=== PATIENT | male | born 1945 | race Caucasian/White ===

== ENCOUNTER 2016-11-01 17:05 | Inpatient (IN) | payer MEDICARE, OTHER ==
--- NOTE | ~2016-11-01 | CR63 ---
[facility] A Service of [facility] RADIOLOGY TEXT RESULTS PATIENT: WON SHAH LOCATION: A 240-01 : 43 UNIT #: [id number] AGE: [address]: Dwight Rhodes III, MD SEX: M ORDER DR: [id number] [place] [id number] [facility]. [place], [place] [address] [id number] I MR#: [id number] Acc #: [id number] NAME: WON SHAH. : 1945 SEX: M STUDY DATE/TIME: 11/02/2016 12:44 UNIT: [facility] ROOM: 240 STUDY DESCRIPTION: CR Chest 2 View Attending Physician: Dwight Rhodes III, M.D. Ordering Physician: David Stahl M.D. Primary Care Physician: Yanira Plata M.D. MEDICAL IMAGING REPORT This report is preliminary unless electronic signature is present EXAM Chest 2 views 11/02/2016 INDICATIONS 70-year-old male presenting with shortness of air that began today. History of bypass surgery and coronary artery disease. TECHNIQUE Frontal chest COMPARISON 01/22/2016 FINDINGS Postop changes of median sternotomy and bypass surgery are present. There is enteric tube present and the tip is at the level of the proximal body stomach. Probable external superimposition of the enteric tube external to the patient over the chest and upper abdomen. Correlate with physical exam. Cardiac silhouette within normal limits for technique. Lung volumes are low. There is bronchovascular crowding. Right lung is clear. There is some atelectasis or scarring in the left lung base. No pneumothorax. IMPRESSION 1. There is some atelectasis or scarring in the left lung base with postop changes in the left hilum and left lung base. 2. Enteric tube tip appears to be at the level the proximal body of the stomach. Probable superimposition of external tubing projecting over the chest upper abdomen as described above. Dictated by... Terry Del Cid M.D. [facility] A Service of [facility] RADIOLOGY TEXT RESULTS PATIENT: WON SHAH LOCATION: [place] [address] : 43 UNIT #: [id number] AGE: [address]: Dwight Rhodes III, MD SEX: M ORDER DR: THIS IS AN ELECTRONICALLY VERIFIED REPORT Terry Del Cid M.D. at 11/03/2016 8:11 AM JOSE/pascual TD: 11/02/2016 17:40 JOB #: [id number] MEDICAL IMAGING REPORT COPY
--- NOTE | ~2016-11-01 | EKG ---
PATIENT: WON SHAH UNIT #: [id number] Ventricular Rate: 63 BPM Atrial Rate: 63 BPM P-R Interval: 216 ms QRS Duration: 98 ms Q-T Interval: 468 ms QTC Calculation(Bezet): 478 ms P Moira: 35 degrees Calculated R Moira: -51 degrees Calculated T Moira: -179 degrees Diagnosis Line: Sinus rhythm with 1st degree A-V block Diagnosis Line: Left axis deviation Diagnosis Line: Left ventricular hypertrophy with repolarization Diagnosis Line: abnormality Diagnosis Line: Abnormal ECG Diagnosis Line: No previous ECGs available Diagnosis Line: Confirmed by MIKY RODAS MD ([id number]) on 11/02/2016 Diagnosis Line: 5:41:54 PM INTERPRETING MD: CLARK INGRAM
--- NOTE | ~2016-11-01 | DS ---
Unit #: [id number] #: [id number] Patient: WON SHAH [id number] [address] [id number] I MR#: [id number] NAME: WON SHAH. ROOM: 465 Age: 70 Sex: M Admission Date: 11/02/2016 : 1945 Discharge Date: 11/06/2016 Attending Physician: Dwight Rhodes III, M.D. Primary Care Physician: Yanira Plata M.D. DISCHARGE SUMMARY ADMITTING DIAGNOSIS Incarcerated parastomal hernia. DISCHARGE DIAGNOSIS Incarcerated parastomal hernia. SECONDARY DIAGNOSIS Coronary artery disease. ADMITTING PHYSICIAN Dr. Dwight Rhodes. CONSULTATIONS 1. Dr. Julien. 2. HIPS. 3. Dr. Viera. PROCEDURE PERFORMED On November 03, 2016, he underwent laparoscopic-assisted open reduction and repair of parastomal hernia. BRIEF HOSPITAL COURSE This is a 70-year-old gentleman who was admitted with incarcerated parastomal hernia. He was hydrated and evaluated by hospitalist and cardiology and cleared for surgery. He underwent laparoscopic-assisted open reduction and resection of parastomal hernia. He tolerated that procedure very well. He was advanced to solid food and by postoperative day #3 was tolerating that without any difficulty. His TESSA drain was removed prior to discharge. DISPOSITION Discharge home. DISCHARGE INSTRUCTIONS 1. He is to follow up with Dr. Jorge next week in the office to have his valorie removed. 2. He was given a prescription for [place] and told to resume his home medications. 3. He has been instructed it is okay to shower. 4. No driving until he is off pain pills for at least 48 hours. Unit #: [id number] #: [id number] Patient: WON SHAH Dictated by... Dwight Rhodes III, M.D. VCL/logan TD: 11/06/2016 10:39 JOB #: [id number] DISCHARGE SUMMARY X Dwight Rhodes III, MD X DISCHARGE SUMMARY
--- NOTE | ~2016-11-01 | OR ---
Unit #: [id number] #: [id number] Patient: WON SHAH [id number] [address] [address] [id number] I MR#: [id number] NAME: WON SHAH. ROOM: [facility] Date of Procedure: 11/03/2016 Admission Date: 11/02/2016 Surgeon: Kasi Jorge M.D. : 1945 Attending Physician: Dwight Rhodes III, M.D. Primary Care Physician: Yanira Plata M.D. OPERATIVE REPORT PREOPERATIVE DIAGNOSIS Incarcerated parastomal hernia with obstruction. POSTOPERATIVE DIAGNOSIS Strangulated parastomal hernia with obstruction. PROCEDURES PERFORMED 1. Diagnostic laparoscopy. 2. Laparoscopic reduction of parastomal hernia. 3. Partial colectomy excising 15 cm of colon. 4. Open repair of parastomal hernia. 5. Creation of left lower quadrant colostomy. MOLDING PROCESS TECHNICIAN Dwight Rhodes M.D. ANESTHESIA General endotracheal anesthesia. ESTIMATED BLOOD LOSS 100 mL. IV FLUIDS 1.5 L crystalloid. COMPLICATIONS None. INDICATIONS FOR PROCEDURE The patient is a 70-year-old gentleman, who presents with the aforementioned diagnosis. He presents for operative management. DESCRIPTION OF PROCEDURE The patient was taken to the operating theater and placed in the supine position. General anesthesia was induced. The abdomen was prepped and draped. A 5-mm Optiview trocar was placed in left upper quadrant without difficulty. The abdomen was insufflated to 15 mmHg with CO2. Under direct vision, I placed a second 5-mm port. General inspection of the abdomen revealed incarcerated hernia all above intraabdominal was viable. I attempted to reduce this laparoscopic to no avail. Leaving the abdomen insufflated, I then cut down on the hernia. Creating an elliptical incision inclusive of the previous ostomy. I was able to get into the Unit #: [id number] #: [id number] Patient: WON SHAH hernia sac and then bluntly free up the hernia sac down to the fascia. I enlarged the fascial opening to allow to mobilize the incarcerated colon. After taking down the sac, identified segments of the distal colon, which were ischemic and pending perforation. Also, identified ischemic omentum associated with this. This was thus excised excising approximately 15 cm of colon. I was able to mobilize the remaining colon with plenty of length in the left lower quadrant. Thus, I then created the left lower quadrant colostomy using a muscle-splitting technique in the left lower quadrant bringing out the colon through this colostomy site. We then secured the colon with 3-0 Vicryl to the anterior fascia. I then was checked on hemostasis and repaired the hernia with interrupted #1 Vicryl. 3-0 Vicryl was then used after placing a Tobin-Levine drain into the depth space created by this hernia. I then closed with valorie. I then matured the ostomy in the left lower quadrant with 3-0 Vicryl. The patient tolerated the procedure well and sent to the recovery room in good condition. Dictated by... Tonya Jacques/kimberly TD: 11/03/2016 16:17 JOB #: [id number] OPERATIVE REPORT X Kasi Jorge MD X PROCEDURE OPERATIVE NOTE
--- NOTE | ~2016-11-01 | CR42 ---
[facility] A Service of [facility] RADIOLOGY TEXT RESULTS PATIENT: WON LANDA LOCATION: C2A 240- : 43 UNIT #: [id number] AGE: [address]: Dwight Rhodes III, MD SEX: M ORDER DR: [id number] [place] [id number] [facility]. [place], [place] [address] [id number] I MR#: [id number] Acc #: [id number] NAME: WON LANDA. : 1945 SEX: M STUDY DATE/TIME: 11/02/2016 12:50 UNIT: [facility] ROOM: 240 STUDY DESCRIPTION: CR Barium Enema Attending Physician: Dwight Rhodes III, M.D. Ordering Physician: David Stahl M.D. Primary Care Physician: Yanira Plata M.D. MEDICAL IMAGING REPORT This report is preliminary unless electronic signature is present EXAM Gastrografin enema INDICATIONS Mr. Landa is a 70-year-old gentleman with a history of left hemicolectomy. He has a right lower quadrant colostomy. He presented with complaints of a mass around the colostomy site, which actually appears to be a parastomal hernia containing additional loops of colon. Extensive fecal burden was identified within the remaining colon and this was felt to be concerning for possible stricture involving the ostomy. TECHNIQUE The patient was placed supine on the fluoroscopy table and initial asbestos hazard abatement worker image was obtained which showed excreted oral contrast material within the patient's bladder. Patient is noted to have gaseous distension of colon within the right lower quadrant, with no other frankly dilated loops of bowel. The patient's colostomy was intubated using a red rubber catheter and contrast was injected. Despite multiple efforts, I was only able to opacify the most-superficial aspect of the stoma. Potentially, there is some narrowing which is precluding opacification of the more-proximal/deeper aspects of the ostomy. Patient tolerated the procedure well. There were no immediate complications. A total of 9 fluoroscopic images were obtained. Total fluoroscopy time was 2.2 minutes. IMPRESSION Despite multiple efforts, I was unable to opacify the deeper/more proximal loops of the ostomy. This is certainly suggestive of a stricture involving the ostomy, as was discussed on prior study from November 01, 2016. Certainly, extensive residual fecal material is seen within the patient's right colon. Dictated by... [facility] A Service of [facility] RADIOLOGY TEXT RESULTS PATIENT: WON LANDA LOCATION: [place] [address] : 43 UNIT #: [id number] AGE: [address]: Dwight Rhodes III, MD SEX: M ORDER DR: Nickie Stover M.D. THIS IS AN ELECTRONICALLY VERIFIED REPORT Nickie Stover M.D. at 11/03/2016 8:43 AM AFF/psc TD: 11/02/2016 23:28 JOB #: [id number] MEDICAL IMAGING REPORT COPY
--- NOTE | ~2016-11-01 | CO ---
Unit #: [id number] #: [id number] Patient: WON SHAH [id number] [facility]. [place], [place] [address] [id number] I MR#: [id number] NAME: WON SHAH ROOM: 240 Age: 70 Sex: M Admission Date: 11/02/2016 : 1945 Attending Physician: Dwight Rhodes III, M.D. Primary Care Physician: Yanira Plata M.D. CONSULTATION REPORT REASON FOR CONSULTATION Preoperative evaluation. HISTORY OF PRESENT ILLNESS This is a 70-year-old white male who is known to Dr. Carreon and has a history of myocardial infarction in the past. He had a coronary artery bypass graft x5 in May 2005. At some point he had a stent placed to the saphenous vein graft to the right coronary artery. His last cardiac catheterization was in 2010, and his grafts were patent. He is known to have ischemic colitis and underwent partial colectomy with colostomy. He is known to have peristoma hernia. He came to the emergency room because of abdominal pain. He was found to have an acutely incarcerated colostomy site that needs surgical revision. From a cardiac standpoint the patient says he has no symptoms of angina. He denies dizziness, palpitations, paroxysmal nocturnal dyspnea or orthopnea. He has no leg edema. No symptoms with his activities. He has had no cardiac procedures, except echocardiogram, since his last cardiac catheterization in 2010. He follows up with Dr. Carreon on a regular basis. His electrocardiogram shows deep T wave inversions in the anterolateral leads that have been sighted on previous electrocardiograms. Troponin on admission was negative. PAST MEDICAL HISTORY 1. Myocardial infarction, details unknown. 2. Coronary artery bypass graft x5 in 05/2005. 3. PCI with stent placement to the saphenous vein graft to the PDA of the right coronary artery in 2007. 4. Cardiac catheterization, 03/13/2011, per Dr. Garrison at [facility] that revealed left main small but normal; LAD mid vessel subtotal, proximal stenosis of 70% to 80%; left circumflex artery 100% proximal; right coronary artery dominant vessel with severe diffuse disease with stenosis up to 90% to 95%; VELAZCO to LAD patent; sequential saphenous vein grafts to the first and diagonal branch patent; saphenous vein graft to the obtuse marginal branch patent; saphenous vein graft to the PDA of the right coronary artery patent with stent widely patent. 5. Hypertension. 6. Hyperlipidemia. 7. Diabetes mellitus type 2. 8. Peripheral neuropathy. 9. GERD. Unit #: [id number] #: [id number] Patient: WON SHAH 10. Chronic kidney disease. 11. Polio as a child. 12. Ischemic colitis status post partial colectomy with colostomy. 13. Poor baseline exercise tolerance. 14. Former smoker. PAST SURGICAL HISTORY 1. Anal suture repair. 2. Cholecystectomy. 3. Partial colectomy with colostomy. 4. Left femoral neck open reduction and internal fixation. SOCIAL HISTORY The patient is . He quit smoking in 2004. Ambulates using a walker and cane. He has poor baseline exercise tolerance. Denies illicit drug and alcohol use. FAMILY HISTORY Noncontributory. ALLERGIES Compazine. HOME MEDICATIONS 1. Pravastatin 40 mg daily. 2. Ranexa 500 mg b.i.d. 3. Amaryl 1 mg daily. 4. Protonix 40 mg daily. 5. Aspirin 81 mg daily. 6. Furosemide 40 mg daily. 7. Potassium chloride 20 mEq daily. 8. Nitroglycerin 0.4 mg sublingual p.r.n. 9. Imdur 90 mg daily. REVIEW OF SYSTEMS CONSTITUTIONAL: Negative for fever or chills. No weakness or fatigue. HEENT: No headache, hearing or visual changes or difficulty with swallowing. Negative for dizziness. CARDIOVASCULAR: Has no symptoms of angina. Denies palpitations. No paroxysmal nocturnal dyspnea or orthopnea. No syncope or near syncope. RESPIRATORY: Negative for dyspnea, cough or hemoptysis. GASTROINTESTINAL: Positive for abdominal pain. No hematochezia, hematemesis or melena. EXTREMITIES: Negative for lower extremity edema. PHYSICAL EXAMINATION VITAL SIGNS: Blood pressure 92/43, heart rate 83, temperature 97.7, BMI 24. GENERAL: This is a 70-year-old elderly white male who is in no acute distress. NEUROLOGIC: He is awake, alert and oriented without focal weaknesses. NECK: Trachea is midline. No thyromegaly or lymphadenopathy. No jugular venous distention. CARDIOVASCULAR: S1, S2. No S3 or S4. A grade 2/6 systolic murmur noted. No rubs, no clicks. Regular rate and rhythm. LUNGS: Clear to auscultation without rales, rhonchi or wheezing. ABDOMEN: Soft, nontender with bowel sounds present. Noted for colostomy. EXTREMITIES: Without leg edema. Unit #: [id number] #: [id number] Patient: WON SHAH DIAGNOSTIC STUDIES LABORATORY STUDIES: Glucose 145, BUN 16, creatinine 1.9, sodium 135, potassium 4.8. CK-MB 5.8, troponin less than 0.05. White count 35.5, hemoglobin 13.3, hematocrit 39.1, platelet count 138. IMAGING: CT of the abdomen and pelvis reveals post hemicolectomy with right abdominal colostomy. There is herniation of some of the colon into the colostomy site. CARDIOVASCULAR STUDIES: Electrocardiogram - Normal sinus rhythm with first-degree AV block with left axis deviation, poor R wave progression and deep T wave inversion V2-V6, I and AVL. IMPRESSION 1. Abdominal pain. 2. Acute on chronic incarcerated colostomy site. 3. History of ischemic colitis status post partial colectomy with colostomy. 4. Coronary artery disease with history of myocardial infarction and coronary artery bypass graft x5 in 2004 with all grafts patent per cardiac catheterization in 2010. 5. Hypertension. 6. Hyperlipidemia. 7. Diabetes mellitus type 2. 8. Chronic kidney disease. PLAN 1. Cardiology was consulted for preoperative evaluation. The patient may need colostomy revision. He has no symptoms of angina. No heart failure on examination. 2. Blood pressure is low-normal but on no antihypertensive medications. 3. Will obtain two-D echocardiogram to evaluate left ventricular systolic function. If no acute findings, the patient is okay to undergo surgery at moderate, but acceptable, risk. 4. Will need cardiac telemetry monitoring postoperatively. Will follow the patient with you. 5. Follow up with Dr. Carreon at discharge. Thank you for allowing us to assist with this patient's care. Dictated by... Red Hayes M.D. AEP/neo TD: 11/02/2016 14:17 JOB #: [id number] CC: Kasi Carreon M.D. Unit #: [id number] #: [id number] Patient: WON SHAH CONSULTATION REPORT X Elmer Duval APRN CONSULTATION REPORT
--- NOTE | ~2016-11-01 | HP ---
Unit #: [id number] #: [id number] Patient: WON LANDA [id number] [address] [place], [place] [address] [id number] I MR#: [id number] NAME: WON LANDA. ROOM: 240 Age: 70 Sex: M Admission Date: 11/01/2016 : 1945 Attending Physician: Dwight Rhodes III, M.D. Primary Care Physician: Yanira Plata M.D. HISTORY AND PHYSICAL Mr. Landa is a 70-year-old white male who 12 years ago had a colostomy formation for ischemic colitis, status post coronary artery bypass surgery. How much colon is left in his abdomen is difficult to say. He has had a parastomal hernia for quite some time, as a matter of fact it has been evaluated by his GI doctors in the past and they declined to repair this and/or do a colostomy revision. He presented with acute abdominal pain and inspissated stool at the colostomy site. ALLERGIES None except for Compazine. HOME MEDICATIONS Pravastatin, Ranexa, Amaryl, Protonix, Lasix, nitroglycerin, and Imdur. He is also on isosorbide. PAST MEDICAL HISTORY He has had a history of coronary artery disease, hypertension, diabetes. He has had stents place, cholecystectomy, and his colostomy as noted. He is a nonsmoker and nondrinker. No illicit drug use. Retired and disabled. REVIEW OF SYSTEMS Otherwise is noncontributory. PHYSICAL EXAMINATION GENERAL: Cooperative, alert, white male in no acute distress. NG tube placed. HEENT: ENT is clear. There is no jaundice. Pupils equal, round, reactive to light and accommodation. CHEST: Clear to auscultation and percussion. CARDIAC: Rhythm is regular. CHEST: Scar well healed. ABDOMEN: Stoma as noted appears to be viable. I was able to clinically palpate the stoma. It goes in at a very strange angle, but there was some stool that I was able to evacuate. Evidently the stomal defect at the level of the fascia; however, is very small. The skin defect is adequate. The patient has no tenderness. No peritoneal signs. No evidence of acute surgical abdomen at present. EXTREMITIES: Full range of motion for patient's stated age, 1+ peripheral pulse bilaterally. IMPRESSION Acute and chronic incarcerated colostomy site with inspissated stool and approximately 6 inches of colon in the subcutaneous space with a tight narrow fascial defect. Unit #: [id number] #: [id number] Patient: WON LANDA This patient needs colostomy revision. He needs medical clearance. We will try to clear out the pouch and he hopefully within the next 24 hours will be revised. Dictated by Tonya Das/phylicia TD: 11/02/2016 10:58 JOB #: [id number] HISTORY AND PHYSICAL X David Stahl MD X HISTORY AND PHYSICAL
--- NOTE | ~2016-11-01 | CO ---
Unit #: [id number] #: [id number] Patient: WON SHAH [id number] [address] [address] [id number] I MR#: [id number] NAME: WON SHAH. ROOM: [facility] Age: 70 Sex: M Admission Date: 11/02/2016 : 1945 Attending Physician: Dwight Rhodes III, M.D. Primary Care Physician: Yanira Plata M.D. Consultation Date: 11/02/2016 CONSULTATION REPORT REASON FOR CONSULTATION Medical management. HISTORY OF PRESENT ILLNESS The patient is a 70-year-old male, who presents to [facility] Emergency Department with complaint of abdominal pain. Apparently, he has had a colostomy for ischemic colitis 12 years ago and has done relatively well since. The patient has apparently had a parastomal hernia. This has been evaluated in the past, but at this time has become painful. The pain is severe and started the day prior to admission. The patient denies nausea or vomiting. He states that it has been somewhat improved by enema that was given via the stoma. Additionally, the patient states pain medication is helpful as well. PAST MEDICAL HISTORY Coronary artery disease, hypertension, diabetes, congestive heart failure. PAST SURGICAL HISTORY Colostomy as above, coronary artery bypass graft, cholecystectomy. SOCIAL HISTORY The patient stopped smoking 11 years ago after his CABG. The patient denies alcohol or illicit drug use. FAMILY HISTORY Reviewed with the patient and is noncontributory. ALLERGIES Compazine. HOME MEDICATIONS Isosorbide mononitrate 90 mg p.o. daily, nitroglycerin 0.4 mg sublingual as needed, potassium chloride 20 mEq daily, pantoprazole 40 mg p.o. daily, aspirin 81 mg daily, Lasix 40 mg daily, Amaryl 0.5 mg p.o. daily, pravastatin 40 mg daily, Ranexa 500 mg p.o. b.i.d. REVIEW OF SYSTEMS 10-point review of systems obtained, negative except as per HPI. PHYSICAL EXAMINATION VITAL SIGNS: Temperature 97.5, pulse 60, blood pressure 143/64. GENERAL: This is a 70-year-old male, in no acute distress, who appears stated age. HEENT: Pupils are equally round. Extraocular movements are intact. Unit #: [id number] #: [id number] Patient: WON SHAH Mucous membrane are dry. NECK: Supple. No JVD. No lymphadenopathy. CARDIAC: Regular rate and rhythm. No murmurs, gallops, or rubs. LUNGS: Clear to auscultation bilaterally. ABDOMEN: Distended and diffusely tender to palpation with stoma present. EXTREMITIES: No clubbing, cyanosis, or edema. They are warm and dry. PSYCHIATRIC: Alert and oriented x3. Affect is appropriate. NEUROLOGICAL: Cranial nerves II through XII intact grossly. The patient moves all extremities equally on purpose. SKIN: No rash, bruises, or ulcers. MUSCULOSKELETAL: No muscle or joint pain. No muscle or joint swelling. DIAGNOSTIC STUDIES LABORATORY RESULTS: Glucose 145, creatinine 1.9. White count is 30. IMAGING STUDIES: Chest x-ray shows atelectasis versus scarring in the left lung base. Gastrografin enema was unable to opacify deeper/more proximal loops of ostomy, which was concerning for stricture. ASSESSMENT AND PLAN 1. Acute on chronic incarcerated colostomy site. The patient states he feels somewhat better after enema; however, it is likely that surgical intervention will be required. Given the patient's diabetes and cardiovascular disease and history of congestive heart failure, I have opted to ask Cardiology to see the patient as well. My feeling is that he has moderate to high risk for surgery, but given the nature of his surgical need, it may be impossible to delay surgery for any intervention that may be required to mitigate the patient's risk. 2. Diabetes. The patient is only on 0.5 mg of Amaryl daily. Sugars seem well controlled. We will continue to follow these and add insulin if needed. 3. Hypertension. Continue home medications. 4. Coronary artery disease. As mentioned above, surgical consult has been placed. 5. Congestive heart failure. I have ordered a 2D echo. The patient does admit to a history of congestive heart failure, but I have no echo records to determine type. 6. Deep vein thrombosis prophylaxis per primary after surgery. Dictated by... Abraham Coppola M.D. COLLETTE/kimberly TD: 11/03/2016 20:35 JOB #: [id number] CONSULTATION REPORT X Abraham Coppola MD CONSULTATION REPORT
--- NOTE | ~2016-11-01 | CT2 ---
[facility] A Service of [facility] & [facility] RADIOLOGY TEXT RESULTS PATIENT: WON SHAH LOCATION: C2A 240-01 : 43 UNIT #: [id number] AGE: [address]: Dwight Rhodes III, MD SEX: M ORDER DR: [id number] [facility] [address]. [place], [place] [address] [id number] I MR#: [id number] Acc #: [id number] NAME: WON SHAH. : 1945 SEX: M STUDY DATE/TIME: 11/01/2016 17:19 UNIT: [facility] ROOM: 240 STUDY DESCRIPTION: CT Abd and Pelv W Cont Attending Physician: Dwight Rhodes III, M.D. Ordering Physician: Boby Levi M.D. Primary Care Physician: Yanira Plata M.D. MEDICAL IMAGING REPORT This report is preliminary unless electronic signature is present EXAM CT abdomen and pelvis, with contrast, 11/01/2016. HISTORY Expanding mass surrounding colostomy site today, with pain and swelling. TECHNIQUE Spiral CT was performed through the abdomen and pelvis following intravenous contrast administration, only as per clinician request. This CT exam was performed with one or more of the following radiation dose reduction techniques: automatic exposure control, adjustment of mA and/or kV according to patient size, and iterative reconstruction. FINDINGS ABDOMEN: The exam is limited by the lack of oral contrast. The liver, spleen, pancreas, adrenal glands are normal. The gallbladder is surgically absent. The kidneys are mildly atrophic bilaterally. PELVIS: The patient is status post left hemicolectomy with right abdominal colostomy. The remaining ascending colon is distended with fluid and fecal material. There is herniation of additional colon at the colostomy site, compared with previous CT scan of the abdomen and pelvis, 01/02/2012. The herniated portion of colon in subcutaneous fat of the right lower quadrant is distended with fecal material. Obstruction at the level of the colostomy is not excluded. Correlation is suggested. No adenopathy is seen. There is no free fluid in the abdomen or pelvis. Small bilateral inguinal hernias are seen, containing only fat. Atelectatic changes at the lung bases. IMPRESSION 1. Patient is status post left hemicolectomy with right abdominal colostomy. Compared with the previous available CT scan of the [facility] A Service of [facility] & [facility] RADIOLOGY TEXT RESULTS PATIENT: WON SHAH LOCATION: [place] [address] : 43 UNIT #: [id number] AGE: [address]: Dwight Rhodes III, MD SEX: M ORDER DR: abdomen and pelvis, 01/02/2012, there is apparent herniation of some of the colon into the colostomy site. The herniated loop of colon is distended with fecal material. I cannot exclude a degree of obstruction at the level of the colostomy site. Correlation is suggested. 2. Surgical absence of the gallbladder. 3. Kidneys are mildly atrophic bilaterally. 4. Bilateral inguinal hernias containing only fat. STAT * RESULT Dictated by... Mesfin Wright M.D. THIS IS AN ELECTRONICALLY VERIFIED REPORT Mesfin Wright M.D. at 11/02/2016 2:15 PM STEPHANIE/vikki TD: 11/01/2016 18:26 JOB #: [id number] MEDICAL IMAGING REPORT COPY
[2016-11-01 16:13] LABS: BASOPHIL# 0.1 X10e3 (0-0.3); BASOPHIL% 0.6 % (0-2.5); EOSINOPHIL# 0.2 X10e3 (0-0.7); HEMATOCRIT 42.9 % (38.0-50.0); HEMOGLOBIN 14.6 gm/dL (13.0-16.0); LYMPHOCYTE# 1.4 X10e3 (1.0-3.5); LYMPHOCYTE% 14.6 % (17.0-45.0); MEAN CELL VOLUME 90.4 FL (83-96); MEAN CORPUSCULAR HEMOGLOBIN 30.9 PG (28-34); MEAN CORPUSCULAR HGB CONC 34.1 g/dL (30-36); MEAN PLATELET VOLUME 7.6 FL (6.5-11.5); MONOCYTE# 0.5 X10e3 (0-1.0); MONOCYTE% 5.6 % (3.0-12.0); NEUTROPHIL# 7.3 X10e3 (1.5-7.1); NEUTROPHIL% 77.2 % (40-75); PLATELET COUNT 156 X10e3 (140-420); RED BLOOD COUNT 4.74 X10e (3.90-5.60); RED CELL DISTRIBUTION WIDTH 13.8 % (11.0-15.5); WHITE BLOOD COUNT 9.5 X10e3 (4.0-10.5)
[2016-11-01 16:19] LABS: POC - CKMB 5.8 ng/mL (0.0-7.9); POC - TROPONIN <0.05 ng/mL (<=0.05)
[2016-11-01 16:23] LABS: DIFF IND NO
[2016-11-01 16:40] LABS: ALBUMIN SERUM 3.8 g/dL (3.5-5.0); BILIRUBIN, DIRECT 0.1 mg/dL (0.0-0.2); BILIRUBIN,TOTAL 1.1 mg/dL (0.2-2.0); BUN/CREATININE RATIO 8.66; CALCIUM SERUM 8.6 mg/dL (8.4-10.2); CREATININE SERUM 1.5 mg/dL (0.6-1.4); GLOM FILT RATE Estimated 48.9 mL/min (>60); POTASSIUM 4.2 mmol/L (3.5-5.1); PROTEIN TOTAL SERUM 7.1 g/dL (6.0-8.3)
[~2016-11-01 17:05] MED LIST: AMARYL1 MG PO; ASPIRIN81 MG PO; ASPIRINEC PO; ATENOLOL PO; BYSTOLIC PO; DEPAKOTE ER PO; GLUCOPHAGE XR500 MG PO; IMDUR PO; IMDUR-ER30 M1 PO; IMDUR-ER60 M1 PO; KEFLEX250 M2 PO; LASIX PO; LIPITOR PO; LORTAB 5-325 M1 EACH PO; LOVENOX30 MG/0.3 INJ; METOPROLOL TAR25 MG PO; NITROGLYGERIN0.4 MG SL; NORCO 5/325 TAB1 TAB PO; PANTOPRAZOLE SO40 MG PO; PLAVIX PO; POTASSIUM CHLO10 MEQ PO; PRAVASTATIN SOD40 MG PO; RANEXA500 MG PO; SUDAFED PO
[2016-11-02 06:31] LABS: BASOPHIL% 0.1 % (0-2.5); HEMOGLOBIN 13.7 gm/dL (13.0-16.0); LYMPHOCYTE# 1.2 X10e3 (1.0-3.5); MEAN CELL VOLUME 89.3 FL (83-96); MEAN CORPUSCULAR HEMOGLOBIN 30.6 PG (28-34); MEAN CORPUSCULAR HGB CONC 34.3 g/dL (30-36); MEAN PLATELET VOLUME 8.1 FL (6.5-11.5); MONOCYTE# 1.7 X10e3 (0-1.0); MONOCYTE% 5.6 % (3.0-12.0); NEUTROPHIL# 27.2 X10e3 (1.5-7.1); NEUTROPHIL% 90.3 % (40-75); PLATELET COUNT 151 X10e3 (140-420); RED BLOOD COUNT 4.48 X10e (3.90-5.60); RED CELL DISTRIBUTION WIDTH 13.7 % (11.0-15.5)
[2016-11-02 06:34] LABS: DIFF IND YES; WHITE BLOOD COUNT 30.1 X10e3 (4.0-10.5)
[2016-11-02 06:55] LABS: BUN/CREATININE RATIO 8.42; CALCIUM SERUM 8.1 mg/dL (8.4-10.2); CREATININE SERUM 1.9 mg/dL (0.6-1.4); GLOM FILT RATE Estimated 37.2 mL/min (>60); POTASSIUM 4.8 mmol/L (3.5-5.1)
[2016-11-02 07:39] LABS: ANISOCYTOSIS SL; PLATELET ESTIMATE NORMAL (NORMAL); RBC NORMAL YES
[2016-11-02 12:42] LABS: HEMATOCRIT 39.1 % (38.0-50.0); HEMOGLOBIN 13.3 gm/dL (13.0-16.0); MEAN CORPUSCULAR HEMOGLOBIN 30.6 PG (28-34); RED BLOOD COUNT 4.34 X10e (3.90-5.60); RED CELL DISTRIBUTION WIDTH 13.6 % (11.0-15.5); WHITE BLOOD COUNT 35.5 X10e3 (4.0-10.5)
[2016-11-02 12:55] LABS: INR 1.3; PARTIAL THROMBOPLASTIN TIME 30.3 SECONDS (23.5-31.3); PROTHROMBIN TIME (PATIENT) 13.3 SECONDS (9.6-11.5)
[2016-11-02 13:09] LABS: ALBUMIN SERUM 3.2 g/dL (3.5-5.0); BILIRUBIN,TOTAL 1.3 mg/dL (0.2-2.0); BUN/CREATININE RATIO 10.55; CREATININE SERUM 1.8 mg/dL (0.6-1.4); GLOM FILT RATE Estimated 39.6 mL/min (>60); PROTEIN TOTAL SERUM 6.1 g/dL (6.0-8.3)
[2016-11-02 15:47] LABS: URINE APPEARANCE TURBID; URINE BILIRUBIN NEG (NEG); URINE BLOOD 3+ (NEG); URINE COLOR DK YELLOW; URINE GLUCOSE NEG (NEG); URINE KETONE NEG (NEG); URINE LEUKOCYTE ESTERASE 3+ (NEG); URINE NITRATE POS (NEG); URINE PROTEIN 1+ (NEG); URINE SPECIFIC GRAVITY 1.047 (1.003-1.035); URINE UROBILINOGEN 0.2 MG/DL (NEG)
[2016-11-02 15:50] LABS: U HYALINE CASTS AUWI 0-2 /[LPF]; URBCS1 AUWI 25-50 /[HPF] (0-2); URINE BACTERIA AUWI 1+ (NEGATIVE); URINE SQUAMOUS EPITHELIAL CELL OCC /[HPF]; UWBCS1 AUWI INNUM (0-5)
[2016-11-04 03:47] LABS: HEMATOCRIT 33.6 % (38.0-50.0); MEAN CELL VOLUME 91.5 FL (83-96); MEAN CORPUSCULAR HEMOGLOBIN 30.4 PG (28-34); MEAN CORPUSCULAR HGB CONC 33.3 g/dL (30-36); MEAN PLATELET VOLUME 8.6 FL (6.5-11.5); RED BLOOD COUNT 3.67 X10e (3.90-5.60); RED CELL DISTRIBUTION WIDTH 14.1 % (11.0-15.5)
[2016-11-04 03:50] LABS: HEMOGLOBIN 11.2 gm/dL (13.0-16.0); WHITE BLOOD COUNT 14.5 X10e3 (4.0-10.5)
[2016-11-04 04:16] LABS: BUN/CREATININE RATIO 13.33; CALCIUM SERUM 7.6 mg/dL (8.4-10.2); CREATININE SERUM 2.1 mg/dL (0.6-1.4); GLOM FILT RATE Estimated 33.2 mL/min (>60); MAGNESIUM 1.6 mg/dL (1.6-3.0); POTASSIUM 4.3 mmol/L (3.5-5.1)
[2016-11-05 03:49] LABS: HEMATOCRIT 31.5 % (38.0-50.0); HEMOGLOBIN 10.8 gm/dL (13.0-16.0); MEAN CELL VOLUME 91.2 FL (83-96); MEAN CORPUSCULAR HEMOGLOBIN 31.3 PG (28-34); MEAN CORPUSCULAR HGB CONC 34.3 g/dL (30-36); MEAN PLATELET VOLUME 8.6 FL (6.5-11.5); RED BLOOD COUNT 3.46 X10e (3.90-5.60); WHITE BLOOD COUNT 13.1 X10e3 (4.0-10.5)
[2016-11-05 04:25] LABS: BUN/CREATININE RATIO 10.52; CALCIUM SERUM 7.7 mg/dL (8.4-10.2); CREATININE SERUM 1.9 mg/dL (0.6-1.4); GLOM FILT RATE Estimated 37.2 mL/min (>60); MAGNESIUM 1.9 mg/dL (1.6-3.0); PHOSPHOROUS 1.2 mg/dL (2.5-4.6); POTASSIUM 4.2 mmol/L (3.5-5.1)
[2016-11-06 03:11] LABS: HEMATOCRIT 29.9 % (38.0-50.0); HEMOGLOBIN 10.1 gm/dL (13.0-16.0); MEAN CELL VOLUME 91.2 FL (83-96); MEAN CORPUSCULAR HEMOGLOBIN 30.7 PG (28-34); MEAN CORPUSCULAR HGB CONC 33.7 g/dL (30-36); RED BLOOD COUNT 3.28 X10e (3.90-5.60); WHITE BLOOD COUNT 10.8 X10e3 (4.0-10.5)
[2016-11-06 03:37] LABS: CALCIUM SERUM 7.6 mg/dL (8.4-10.2); CREATININE SERUM 1.9 mg/dL (0.6-1.4); GLOM FILT RATE Estimated 37.2 mL/min (>60); MAGNESIUM 2.1 mg/dL (1.6-3.0); PHOSPHOROUS 1.5 mg/dL (2.5-4.6); POTASSIUM 4.6 mmol/L (3.5-5.1)
[2016-11-06] MEDS ORDERED: NORCO 7.5-3251 EACH PO (07:43)
[2016-11-06] MEDS ORDERED: INVANZ1 G/VIA1 IV (11:54)
[2016-11-06] MEDS ORDERED: OFLOXACIN5 M1 OS (11:54)
[2016-11-06] MEDS ORDERED: NITROFURANTOIN100 M3 PO (12:09)
== END 2016-11-06 15:20 | disposition home health service (06) | DRG 330 ==
LOC: CED 17:05 → CEDOF 19:00 → C2A 11-02 10:35 → C4B 11-03 14:18 → C4C 11-03 18:00
PROVIDERS: Emergency Medicine; Specialist; Surgery
PROC: B246ZZZ Ultrasonography of Right and Left Heart (ICD-10-PCS; principal; 2016-11-02)
PROC: B246YZZ Ultrasonography of Right and Left Heart using Other Contrast (ICD-10-PCS; 2016-11-02)
PROC: 0DBE0ZZ Excision of Large Intestine, Open Approach (ICD-10-PCS; 2016-11-03)
PROC: 0D1K0Z4 Bypass Ascending Colon to Cutaneous, Open Approach (ICD-10-PCS; 2016-11-03)
PROC: 0WQF0ZZ Repair Abdominal Wall, Open Approach (ICD-10-PCS; 2016-11-03)
PROC: 0WJF4ZZ Inspection of Abdominal Wall, Percutaneous Endoscopic Approach (ICD-10-PCS; 2016-11-03)
DX: K43.3 Parastomal hernia with obstruction, without gangrene (principal); K55.1 Chronic vascular disorders of intestine; N17.9 Acute kidney failure, unspecified; N39.0 Urinary tract infection, site not specified; I13.0 Hypertensive heart and chronic kidney disease with heart failure and stage 1 through stage 4 chronic kidney disease, or unspecified chronic kidney disease; G62.9 Polyneuropathy, unspecified; I50.9 Heart failure, unspecified; E11.9 Type 2 diabetes mellitus without complications; B96.20 Unspecified Escherichia coli [E. coli] as the cause of diseases classified elsewhere; J44.9 Chronic obstructive pulmonary disease, unspecified; I25.10 Atherosclerotic heart disease of native coronary artery without angina pectoris; Z95.5 Presence of coronary angioplasty implant and graft; Z95.1 Presence of aortocoronary bypass graft; K21.9 Gastro-esophageal reflux disease without esophagitis; Z87.891 Personal history of nicotine dependence; Z88.8 Allergy status to other drugs, medicaments and biological substances; I25.2 Old myocardial infarction; E78.5 Hyperlipidemia, unspecified; Z79.82 Long term (current) use of aspirin; Z90.49 Acquired absence of other specified parts of digestive tract; H10.9 Unspecified conjunctivitis; N18.9 Chronic kidney disease, unspecified
CPT/HCPCS: 71020; 74177; 74270; 80048; 80053; 80076; 81003; 82150; 82553; 82947; 83605; 83690; 83735; 84100; 84132; 84484; 85025; 85027; 85610; 85730; 86850; 86900; 86901; 87086; 87088; 87186; 88307; 93005; 93306; 94760; 94761; 96361; 96374; 96375; 99291; C9113; J0330; J1170; J1644; J1650; J1885; J2250; J2270; J2405; J2543; J2710; J3010; J3475; J3480; Q9967

== ENCOUNTER 2016-11-13 18:53 | Emergency (ER) | payer MEDICARE, OTHER ==
[2016-11-13 17:45] LABS: BASOPHIL% 0.5 % (0-2.5); DIFF IND NO; EOSINOPHIL# 0.2 X10e3 (0-0.7); EOSINOPHIL% 2.4 % (0.0-7.0); HEMATOCRIT 34.4 % (38.0-50.0); HEMOGLOBIN 11.7 gm/dL (13.0-16.0); LYMPHOCYTE# 1.5 X10e3 (1.0-3.5); LYMPHOCYTE% 15.1 % (17.0-45.0); MEAN CELL VOLUME 90.1 FL (83-96); MEAN CORPUSCULAR HEMOGLOBIN 30.7 PG (28-34); MEAN PLATELET VOLUME 7.2 FL (6.5-11.5); MONOCYTE# 0.6 X10e3 (0-1.0); MONOCYTE% 5.9 % (3.0-12.0); NEUTROPHIL# 7.4 X10e3 (1.5-7.1); NEUTROPHIL% 76.1 % (40-75); PLATELET COUNT 337 X10e3 (140-420); RED BLOOD COUNT 3.82 X10e (3.90-5.60); RED CELL DISTRIBUTION WIDTH 13.6 % (11.0-15.5); WHITE BLOOD COUNT 9.7 X10e3 (4.0-10.5)
[2016-11-13 18:00] LABS: INR 1.1; PROTHROMBIN TIME (PATIENT) 11.4 SECONDS (9.6-11.5)
[2016-11-13 18:03] LABS: ALBUMIN SERUM 3.4 g/dL (3.5-5.0); BILIRUBIN,TOTAL 0.7 mg/dL (0.2-2.0); BUN/CREATININE RATIO 6.47; CALCIUM SERUM 8.2 mg/dL (8.4-10.2); CREATININE SERUM 1.7 mg/dL (0.6-1.4); GLOM FILT RATE Estimated 42.3 mL/min (>60); POTASSIUM 3.9 mmol/L (3.5-5.1); PROTEIN TOTAL SERUM 7.2 g/dL (6.0-8.3)
[~2016-11-13 18:53] MED LIST changes: +INVANZ1 G/VIA1 IV; +NITROFURANTOIN100 M3 PO; +NORCO 7.5-3251 EACH PO; +OFLOXACIN5 M1 OS
== END 2016-11-13 19:42 | disposition home or self-care (01) ==
LOC: CED 18:53
PROVIDERS: Emergency Medicine
DX: K91.872 Postprocedural seroma of a digestive system organ or structure following a digestive system procedure (principal); E11.9 Type 2 diabetes mellitus without complications; K21.9 Gastro-esophageal reflux disease without esophagitis; I10 Essential (primary) hypertension; Z88.8 Allergy status to other drugs, medicaments and biological substances
CPT/HCPCS: 36415; 80053; 85025; 85610; 85730; 99283

== ENCOUNTER 2016-12-23 18:31 | Inpatient (IN) | payer MEDICARE, OTHER ==
--- NOTE | ~2016-12-23 | EKG ---
PATIENT: WON SHAH UNIT #: [id number] Ventricular Rate: 72 BPM Atrial Rate: 72 BPM P-R Interval: 216 ms QRS Duration: 122 ms Q-T Interval: 432 ms QTC Calculation(Bezet): 473 ms P [place]: 76 degrees Calculated R [place]: -48 degrees Calculated T [place]: 151 degrees Diagnosis Line: Sinus rhythm with 1st degree A-V block Diagnosis Line: Left axis deviation Diagnosis Line: Left ventricular hypertrophy with QRS widening and Diagnosis Line: repolarization abnormality Diagnosis Line: Abnormal ECG Diagnosis Line: When compared with ECG of 01-NOV-2016 15:38, Diagnosis Line: T wave inversion less evident in Lateral leads Diagnosis Line: Confirmed by RUPINDER ROMERO MD ([id number]) on Diagnosis Line: 12/24/2016 8:54:04 AM INTERPRETING : CLARISA
--- NOTE | ~2016-12-23 | HP ---
Unit #: [id number] #: [id number] Patient: WON SHAH [id number] [address] [place], [place] [address] [id number] I MR#: [id number] NAME: WON SHAH. ROOM: 474 Age: 71 Sex: M Admission Date: 12/23/2016 : 1945 Attending Physician: Abraham Coppola M.D. Primary Care Physician: Yanira Plata M.D. HISTORY AND PHYSICAL CHIEF COMPLAINT Weakness. DISCUSSION This is a 71-year-old gentleman with a past medical history of coronary artery disease with previous CABG, depression, hypertension, dyslipidemia, diabetes, peripheral neuropathy, GERD, chronic kidney disease, history of polio as a child. History of incarcerated parastomal hernia, history of past repair previous colostomy. He has a visiting nurse. VNA came to home and patient was told that he has dehydration. He had been feeling generalized weakness. He was sent to the ER. In the ER he was found to have orthostatic blood pressure lying 130, standing 90. His creatinine is 1.7, BNP 210 and urine positive for UTI. Eventually being admitted for UTI and weakness, dehydration, positive orthostatics. He feels dizzy, weakness, but denied chest pain, denies nausea, vomiting, abdominal pain, cough, or other complaint. PAST MEDICAL HISTORY 1. History of coronary artery disease, previously CABG x5 in 05/2005. 2. History of PCI with stents to saphenous vein, PDA of right coronary artery in 2007. 3. History of hypertension. 4. Hyperlipidemia. 5. Diabetes. 6. Peripheral neuropathy. 7. History of depression. 8. GERD. 9. Chronic kidney disease. 10. History of polio as a child. 11. History of ischemic colitis, status post partial colectomy with colostomy. 12. History of (1) suture repair. 13. History of cholecystectomy. 14. History of partial colectomy with colostomy. 15. Left femoral neck open reduction internal fixation in the past. 16. History of incarcerated parastomal hernia, repair in October 2016. SOCIAL HISTORY The is . He lives with his . He quit smoking in 2004. Ambulates using walker and cane. Denies other illicit drug use or alcohol use. FAMILY HISTORY Noncontributory. Unit #: [id number] #: [id number] Patient: WON SHAH EYAL Compangel. MEDICATION FROM HOME Vicodin 7.5/325 one tablet q.6 hour p.r.n.; Nitrostat 0.4 mg sublingual p.r.n.; aspirin 81 mg daily; Lasix 40 mg p.r.n.; K-Dur 10 mEq p.r.n.; Citalopram 10 mg daily; isosorbide 30 mg daily, Amaryl 1 mg daily; pravastatin 40 mg daily; Ranexa 500 b.i.d. REVIEW OF SYSTEMS Negative except as per history of present illness. PHYSICAL EXAMINATION GENERAL: A middle-aged man, lying in the bed comfortably, currently not in any distress. He is alert, awake, oriented x3, comfortable, not in any distress. VITAL SIGNS: Current vitals are following: Temperature 98.8, heart rate 75, respiratory rate 14, blood pressure 117/58. HEENT: Pupils are equal, react to light. Head is normocephalic, atraumatic. NECK: Supple. No JVD. No thyromegaly. HEART: S1, S2, regular rate and rhythm. 2/6 systolic murmur. LUNGS: Clear to auscultation. No rhonchi. No wheezing. ABDOMEN: Soft. Colostomy noted. EXTREMITIES: Right leg with positive edema, left leg negative. No edema. No cyanosis. NEUROLOGIC: No focal neurologic deficit. DIAGNOSTIC STUDIES LABORATORY STUDIES: Sodium 137, potassium 4.4, chloride 106, CO2 24, glucose 75, BUN 11, creatinine 1.7. BNP 210. UA has a cloudy appearance, positive nitrate, WBC 50-100. CBC - white count 7, hemoglobin 13, hematocrit 39, platelet 176, troponin 0.05. IMAGING STUDIES: Chest x-ray - negative. ASSESSMENT AND PLAN 1. UTI: Start the patient on IV Rocephin. 2. Positive arthrosis in the ER, will monitor arthrosis every shift. 3. Generalized weakness. 4. History of incarcerated parastomal hernia. History of repair in 2017. 5. History of coronary artery disease. Previous CABG and stent. 6. History of depression. 7. Hypertension. 8. Dyslipidemia. 9. Diabetes. 10. Peripheral neuropathy. 11. GERD. 12. Chronic kidney disease. 13. History of polio as a child. 14. DVT prophylaxis. Will place the patient on Lovenox. 1. Dictated by Renato Lerma M.D. Unit #: [id number] #: [id number] Patient: WON SHAH Alpa RKG/ts TD: 12/24/2016 14:33 JOB #: [id number] HISTORY AND PHYSICAL Page 1 of 1 X X HISTORY AND PHYSICAL
--- NOTE | ~2016-12-23 | CR72 ---
[facility] A Service of [facility] & [facility] RADIOLOGY TEXT RESULTS PATIENT: WON SHAH LOCATION: [facility] : [birth year] UNIT #: [id number] AGE: [address]: Abraham Coppola MD SEX: M ORDER DR: [id number] [facility] [address]. [place], [place] [address] [id number] MR#: [id number] Acc #: [id number] NAME: WON SHAH. : 1945 SEX: M STUDY DATE/TIME: 12/23/2016 18:03 UNIT: [facility] ROOM: STUDY DESCRIPTION: CR Chest Single View Portable Attending Physician: Aniket Espinosa D.O. Ordering Physician: Aniket Espinosa D.O. Primary Care Physician: Yanira Plata M.D. MEDICAL IMAGING REPORT This report is preliminary unless electronic signature is present EXAM Portable chest. HISTORY Shortness of air for 3 days. Weakness. Dehydration. FINDINGS Cardiac size and pulmonary vascularity are normal. Sternotomy with mediastinal clips and markers. No airspace infiltrates or effusions. IMPRESSION No acute findings. No active disease. Dictated by... Akash Davies M.D. THIS IS AN ELECTRONICALLY VERIFIED REPORT Akash Davies M.D. at 12/23/2016 11:46 PM JONATHAN/baldomero TD: 12/23/2016 21:27 JOB #: [id number] MEDICAL IMAGING REPORT Page 1 of 1 COPY
--- NOTE | ~2016-12-23 | DS ---
Unit #: [id number] #: [id number] Patient: WON SHAH [id number] [address] [place], [place] [address] [id number] I MR#: [id number] NAME: WON SHAH. ROOM: [facility] Age: 71 Sex: M Admission Date: 12/23/2016 : 1945 Discharge Date: 12/24/2016 Attending Physician: Abraham Coppola M.D. Primary Care Physician: Yanira Plata M.D. DISCHARGE SUMMARY REASON FOR ADMISSION Acute kidney injury/dehydration. HISTORY OF PRESENT ILLNESS The patient is a very pleasant 71-year-old male followed by VNA services at home, who was noted to be orthostatic as well as hypotensive. Therefore, called PCP who instructed the patient to come to the ER for further evaluation. Initially, when patient was seen and evaluated in the emergency room, initial orthostatics were positive. Creatinine was noted to 1.7 with GFR 39. Other laboratory studies were relatively unremarkable. Chest x-ray did not show any acute disease. Overnight, patient received IV fluids. Blood pressure has since stabilized. His creatinine now is at 1.5, GFR is at 45 and for a 71-year-old this likely represents patient's baseline. At this point in time, patient is currently clinically stable for discharge home. He has already been followed by VNA services. I have instructed him to follow with his PCP in approximately seven to ten days. FINAL DISCHARGE DIAGNOSES 1. Acute kidney injury. 2. Dehydration. 3. Positive orthostatic hypotension. 4. Urinary tract infection, culture pending. 5. Diabetes. 6. Coronary artery disease. 7. Hyperlipidemia. 8. Depression. 9. History of cardiac bypass. 10. Cholecystectomy. 11. History of colostomy. FINAL DISCHARGE MEDICATIONS 1. Celexa 10 mg p.o. daily. 2. Lipitor 10 mg p.o. q. h.s. 3. Lasix 20 mg p.o. Sunday, Sunday, Sunday. 4. Pravastatin 40 mg p.o. daily. 5. Aspirin 81 mg p.o. daily. 6. [place] 7.5/300, one tablet p.o. q.6 p.r.n. 7. Ranexa 500 mg p.o. b.i.d. 8. Amaryl half tablet 0.5 mg p.o. daily. 9. Imdur 30 mg p.o. daily. 10. Sublingual nitro as directed. Unit #: [id number] #: [id number] Patient: WON SHAH 11. Cipro 250 mg p.o. b.i.d. x3 days. DISCHARGE CONDITION Stable. DISCHARGE DISPOSITION Home. FOLLOWUP PCP in approximately seven days. VNA to continue to follow the patient while at home. Dictated by... Qi Guzmán M.D. YULIYA/kermit TD: 12/25/2016 11:45 JOB #: [id number] DISCHARGE SUMMARY Page 1 of 1 X Qi Guzmán MD X DISCHARGE SUMMARY
[2016-12-23 19:26] LABS: URINE SOURCE CLEAN CATCH
[2016-12-23 19:28] LABS: POC - CKMB 2.6 ng/mL (0.0-7.9); POC - TROPONIN <0.05 ng/mL (<=0.05)
[2016-12-23 19:33] LABS: URINE APPEARANCE CLEAR; URINE BILIRUBIN NEG (NEG); URINE BLOOD TRACE (NEG); URINE COLOR YELLOW; URINE GLUCOSE NEG (NEG); URINE KETONE NEG (NEG); URINE LEUKOCYTE ESTERASE 3+ (NEG); URINE NITRATE POS (NEG); URINE PROTEIN NEG (NEG); URINE SPECIFIC GRAVITY 1.011 (1.003-1.035); URINE UROBILINOGEN 0.2 MG/DL (NEG)
[2016-12-23 19:34] LABS: BASOPHIL% 0.6 % (0-2.5); EOSINOPHIL# 0.3 X10e3 (0-0.7); EOSINOPHIL% 4.2 % (0.0-7.0); HEMATOCRIT 39.8 % (38.0-50.0); HEMOGLOBIN 13.3 gm/dL (13.0-16.0); LYMPHOCYTE# 2.5 X10e3 (1.0-3.5); MEAN CORPUSCULAR HEMOGLOBIN 30.4 PG (28-34); MEAN CORPUSCULAR HGB CONC 33.4 g/dL (30-36); MEAN PLATELET VOLUME 8.8 FL (6.5-11.5); MONOCYTE# 0.7 X10e3 (0-1.0); MONOCYTE% 8.6 % (3.0-12.0); NEUTROPHIL# 4.1 X10e3 (1.5-7.1); NEUTROPHIL% 53.6 % (40-75); PLATELET COUNT 176 X10e3 (140-420); RED BLOOD COUNT 4.38 X10e (3.90-5.60); RED CELL DISTRIBUTION WIDTH 13.4 % (11.0-15.5); WHITE BLOOD COUNT 7.6 X10e3 (4.0-10.5)
[2016-12-23 19:36] LABS: DIFF IND NO
[2016-12-23 19:36] LABS: CULTURE INDICATED? YES; URBCS1 AUWI 0-2 /[HPF] (0-2); URINE BACTERIA AUWI 4+ (NEGATIVE); URINE SQUAMOUS EPITHELIAL CELL NONE SEEN /[HPF]; UWBCS1 AUWI 50-100 (0-5)
[2016-12-23 20:01] LABS: ALBUMIN SERUM 3.6 g/dL (3.5-5.0); BILIRUBIN, DIRECT 0.1 mg/dL (0.0-0.2); BILIRUBIN,INDIRECT 0.3 mg/dL (0.0-0.9); BILIRUBIN,TOTAL 0.4 mg/dL (0.2-2.0); BUN/CREATININE RATIO 6.47; CALCIUM SERUM 8.6 mg/dL (8.4-10.2); CREATININE SERUM 1.7 mg/dL (0.6-1.4); GLOM FILT RATE Estimated 39.2 mL/min (>60); POTASSIUM 4.4 mmol/L (3.5-5.1); PROTEIN TOTAL SERUM 6.3 g/dL (6.0-8.3)
[2016-12-23] MEDS ORDERED: CITALOPRAM HBR10 MG PO (20:24)
[2016-12-23] MEDS ORDERED: ISOSORBIDE DINI30 MG PO (20:24)
[2016-12-23] MEDS ORDERED: PRAVASTATIN SOD40 MG PO (20:26)
[2016-12-23] MEDS ORDERED: AMARYL1 MG PO (20:26)
[2016-12-23] MEDS ORDERED: RANEXA500 MG PO (20:27)
[2016-12-23] MEDS ORDERED: BAYER CHEWABLE81 MG PO (20:29)
[2016-12-23] MEDS ORDERED: NITROSTAT0.4 MG SL (20:29)
[2016-12-23] MEDS ORDERED: VICODIN ES 7.51 EAC1 PO (20:29)
[2016-12-23] MEDS ORDERED: FUROSEMIDE40 MG PO (20:30)
[2016-12-23] MEDS ORDERED: K-DUR10 MEQ PO (20:31)
[2016-12-23 21:28] LABS: POC - CKMB 2.1 ng/mL (0.0-7.9); POC - TROPONIN <0.05 ng/mL (<=0.05)
[2016-12-24 07:53] LABS: BASOPHIL# 0.1 X10e3 (0-0.3); EOSINOPHIL# 0.3 X10e3 (0-0.7); EOSINOPHIL% 4.1 % (0.0-7.0); HEMATOCRIT 37.4 % (38.0-50.0); HEMOGLOBIN 12.7 gm/dL (13.0-16.0); LYMPHOCYTE% 30.7 % (17.0-45.0); MEAN CELL VOLUME 89.7 FL (83-96); MEAN CORPUSCULAR HEMOGLOBIN 30.4 PG (28-34); MEAN CORPUSCULAR HGB CONC 33.9 g/dL (30-36); MEAN PLATELET VOLUME 8.5 FL (6.5-11.5); MONOCYTE# 0.5 X10e3 (0-1.0); MONOCYTE% 8.1 % (3.0-12.0); NEUTROPHIL# 3.6 X10e3 (1.5-7.1); NEUTROPHIL% 56.1 % (40-75); PLATELET COUNT 159 X10e3 (140-420); RED BLOOD COUNT 4.17 X10e (3.90-5.60); RED CELL DISTRIBUTION WIDTH 13.2 % (11.0-15.5); WHITE BLOOD COUNT 6.4 X10e3 (4.0-10.5)
[2016-12-24 07:55] LABS: DIFF IND NO
[2016-12-24 09:30] LABS: BUN/CREATININE RATIO 7.33; CALCIUM SERUM 8.5 mg/dL (8.4-10.2); CREATININE SERUM 1.5 mg/dL (0.6-1.4); GLOM FILT RATE Estimated 45.6 mL/min (>60)
[2016-12-24] MEDS ORDERED: LASIX20 MG PO (14:13)
[2016-12-24] MEDS ORDERED: CIPRO250 MG PO (14:18)
== END 2016-12-24 17:30 | disposition home health service (06) | DRG 683 ==
LOC: CED 18:31 → CEDOF 21:00 → C4C 12-24 04:56
PROVIDERS: Emergency Medicine; Internal Medicine
DX: N17.9 Acute kidney failure, unspecified (principal); N39.0 Urinary tract infection, site not specified; E11.42 Type 2 diabetes mellitus with diabetic polyneuropathy; E86.0 Dehydration; B96.20 Unspecified Escherichia coli [E. coli] as the cause of diseases classified elsewhere; I95.1 Orthostatic hypotension; I25.10 Atherosclerotic heart disease of native coronary artery without angina pectoris; Z95.1 Presence of aortocoronary bypass graft; Z95.5 Presence of coronary angioplasty implant and graft; E78.5 Hyperlipidemia, unspecified; F32.9 Major depressive disorder, single episode, unspecified; Z90.49 Acquired absence of other specified parts of digestive tract; N18.9 Chronic kidney disease, unspecified; Z86.12 Personal history of poliomyelitis; G62.9 Polyneuropathy, unspecified; K21.9 Gastro-esophageal reflux disease without esophagitis; Z87.891 Personal history of nicotine dependence
CPT/HCPCS: 36415; 71010; 80048; 80076; 81003; 82553; 82947; 83880; 84484; 85025; 87086; 87088; 87186; 93005; 96360; 99285; J0696; J1650; J1815